=== PATIENT | female | born 1970 | race Two or more races ===

== ENCOUNTER → 2018-07-11 | Day surgery (SDC) | payer OTHER ==
--- NOTE | 2018-07-15 11:50 | PATH ---
Surgical Pathology Report Patient Name: ARMANDO CHOUDHARY [facility]. Rec. #: [id number] /Age/Gender: 1970 (Age: 48) / F Account: [id number] Location: [facility] Taken: 07/11/2018 Received: 07/11/2018 Reported: 07/15/2018 Physicians: Flo Merritt M.D. Specimen(s) Received A: RIGHT BREAST SPECIMEN-WITH CALCIFICATIONS B: RIGHT BREAST SPECIMEN -WITHOUT CALCIFICATIONS Clinical History Nonpalpable lesion Mammographic findings: Microcalcification, suspicious Final Diagnosis A. 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 B. BREAST, RIGHT, WITHOUT CALCIFICATIONS, STEREOTACTIC BIOPSY: BENIGN BREAST TISSUE. Electronically Signed Violetta Boogie M.D. Gross Description A. Received in formalin labeled "right breast with calcifications," are 2 barron-yellow, cylindrical portions of fibroadipose tissue measuring 2.3 and 2.6 cm in length and averaging 0.3 cm in diameter. The specimens are submitted in toto in one cassette. B. Received in formalin labeled "right breast without calcifications," is a 3.0 x 2.0 x 0.3 cm aggregate of multiple barron-yellow, irregular to cylindrical portions of fibroadipose tissue. The formalin is filtered and the specimen is entirely submitted in 2 cassettes. Time to formalin fixation: 4 minutes Total formalin fixation time: Approximately 6 hours. /07/11/2018 [facility]/07/11/2018
== END | disposition home or self-care (01) ==
LOC: FMAMMOTONE 11:54 → EDSTATUS 12:00
PROVIDERS: ATTEND Internal Medicine
PROC: 0HBT3ZX Excision of Right Breast, Percutaneous Approach, Diagnostic (ICD-10-PCS; principal; 2018-07-11)
DX: N64.89 Other specified disorders of breast (principal); R92.1 Mammographic calcification found on diagnostic imaging of breast
CPT/HCPCS: 19081; 87899; 88305-TC; A4648

== ENCOUNTER 2021-11-17 04:37 | Day surgery (SDC) | payer OTHER ==
[2021-11-11 13:49] VITALS: BMI 30.5
[2021-11-17 09:19] VITALS: TEMP 98.2
[2021-11-17 10:56] VITALS: BP 142/80; PULSE 69; RESP 22
== END 2021-11-17 10:55 | disposition home or self-care (01) ==
LOC: JASU-ENDO 04:37
PROVIDERS: ATTEND Internal Medicine Gastroenterology
PROC: 0DBL8ZX Excision of Transverse Colon, Via Natural or Artificial Opening Endoscopic, Diagnostic (ICD-10-PCS; 2021-11-17)
PROC: 0DB68ZX Excision of Stomach, Via Natural or Artificial Opening Endoscopic, Diagnostic (ICD-10-PCS; 2021-11-17)
PROC: 0DBN8ZX Excision of Sigmoid Colon, Via Natural or Artificial Opening Endoscopic, Diagnostic (ICD-10-PCS; principal; 2021-11-17 09:30)
DX: Z12.11 Encounter for screening for malignant neoplasm of colon (principal); D12.5 Benign neoplasm of sigmoid colon; D12.3 Benign neoplasm of transverse colon; K29.50 Unspecified chronic gastritis without bleeding; E11.9 Type 2 diabetes mellitus without complications; Z79.84 Long term (current) use of oral hypoglycemic drugs
CPT/HCPCS: 81025; 82962; 88305-TC; 88342-TC